=== PATIENT | female | born 1965 | race Two or more races ===

== ENCOUNTER 2020-01-09 08:04 | Day surgery (SDC) | payer OTHER ==
[2020-01-09] MEDS ORDERED: IBUPROFEN600 MG PO (14:52)
== END 2020-01-09 20:00 | disposition home or self-care (01) ==
LOC: CIR.AMB 08:04
PROVIDERS: ATTEND Obstetrics & Gynecology Gynecology
DX: N84.0 Polyp of corpus uteri (principal); Z20.818 Contact with and (suspected) exposure to other bacterial communicable diseases